=== PATIENT | female | born 1960 | race Two or more races ===

== ENCOUNTER 2017-05-18 21:18 | Emergency (ER) | payer OTHER ==
[~2017-05-18] VITALS: Ht 157.5 cm; Wt 68.0 kg
[2017-05-18 21:33] VITALS: BP 147/93
[2017-05-18 22:00] LABS: Basophils # (auto) 0 uL; Basophils % (auto) 0.3 % (0.0-2.0); Eosinophils # (auto) 0.3 uL; Eosinophils % (auto) 2.4 % (0.0-7.0); Hematocrit 37.9 % (36.0-46.0); Hemoglobin 13.1 g/dL (12.2-16.2); Lymphocytes # (auto) 2.9 uL; Lymphocytes % (auto) 26.4 % (10.0-50.0); Mean Corpuscular Hemoglobin 32.1 pg (28.0-32.0); Mean Corpuscular Hgb Conc. 34.5 g/dL (32.0-36.0); Mean Platelet Volume 7.7 fL (6.9-10.8); Monocytes # (auto) 0.7 uL; Monocytes % (auto) 6.4 % (0.0-12.0); Neutrophils % (auto) 64.5 % (37.0-80.0); Platelet Count (auto) 312 10^3/uL (140-450); Red Cell Distribution Width 12.8 % (11.8-14.3); White Blood Cell 10.9 10^3/uL (4.4-10.8)
[2017-05-18 22:03] LABS: Albumin 3.6 g/dL (3.4-5.0); Calcium 8.6 mg/dL (8.5-10.1); Potassium 3.5 mmol/L (3.5-5.1)
[2017-05-18 22:06] LABS: Bilirubin, Total 0.4 mg/dL (0.2-1.0); Total Protein 7.8 g/dL (6.4-8.2)
== END 2017-05-19 00:31 | disposition left against medical advice (07) ==
LOC: ER 21:25
DX: I10 Essential (primary) hypertension (principal)
CPT/HCPCS: 36415; 71010; 74176; 80053; 85025